=== PATIENT | female | born 1965 | race Caucasian/White ===

== ENCOUNTER 2025-02-15 09:57 | Outpatient (RCR) | payer OTHER, SELFPAY | END 2025-10-16 10:19 | disposition home or self-care (01) | LOC: HO.PT 09:57 | PROVIDERS: PCP Student in an Organized Health Care Education/Training Program; Visit Provider Student in an Organized Health Care Education/Training Program | DX: S88.911D Complete traumatic amputation of right lower leg, level unspecified, subsequent encounter (principal); S88 Traumatic amputation of lower leg; G54.6 Phantom limb syndrome with pain | CPT/HCPCS: 97110; 97112; 97140; 97162; 97530 ==